=== PATIENT | female | born 1955 | race Hispanic/Latino ===

== ENCOUNTER 2017-08-30 09:41 | Emergency (ER) | payer OTHER ==
[2017-08-30] MEDS ORDERED: NA CHLORIDE 0.9% 500 ML ONE (10:18)
[2017-08-30] MEDS ORDERED: EPINEPHRINE INH 0.5 ML VIAL IH ONE ×3 (10:18→14:48)
[2017-08-30] MEDS ORDERED: DEXAMETHASONE 10 MG/ML VIAL ONE (10:18)
[2017-08-30 10:56] LABS: Absolute Lymphocytes (CBC) 1.1 K/uL (0.7-4.9); Absolute Neutrophil 7.7 K/uL (1.8-8.0); Basophils % 0.2 % (0-1.3); Eosinophils % 0.4 % (0-4.4); Lymphocytes % 11.5 % (15.3-44.8); MCH 27.7 pg (27.0-35.0); MPV 7.4 fL (7.6-11.3); Monocytes % 10.5 % (3.3-12.3); RBC Red Blood Cell Count 4.29 M/uL (3.86-4.86)
--- NOTE | 2017-08-30 11:00 | RAD REPORT ---
EXAM DESCRIPTION: RAD - Chest Pa And Lat (2 Views) - 08/30/2017 10:54 am CLINICAL HISTORY: Cough, wheezing COMPARISON: None. FINDINGS: Ill-defined opacity in the left retrocardiac region and left lung base may represent atele ctasis or developing pneumonia/infiltrate. The heart is mildly prominent size. No displaced fractures .
[2017-08-30] MEDS ORDERED: CEFTRIAXONE/SWI 1gm 1 GM/10 ML SYR ONE (11:19)
[2017-08-30] MEDS ORDERED: AZITHROMYCIN 500 MG/250 ML BAG IV ONE (11:30)
[2017-08-30 12:43] LABS: BUN Blood Urea Nitrogen 16 mg/dL (6-20); Bicarbonate 29 mEq/L (21-31); Glomerular Filtration Rate > 90 mL/min (=/>90); Glucose Level 114 mg/dL (65-120); Potassium 3.6 mEq/L (3.6-5.0); Sodium Level 137 mEq/L (135-145)
--- NOTE | 2017-08-30 13:02 | RAD REPORT ---
EXAM DESCRIPTION: CT - Soft Tissue Neck W/Contr - 08/30/2017 12:35 pm CLINICAL HISTORY: Stridor, shortness of breath TECHNIQUE: During dynamic enhancement using 100 milliliters nonionic IV contrast, axial 5 millimeter thick images of the neck were obtained. All CT scans are performed using dose optimization technique as appropriate and may include automated exposure control or mA/KV adjustment according to patient size. FINDINGS: Prominent mucosal thickening is seen with air-fluid levels in each maxillary sinus. There is prominent ethmoid and right side sphenoid mucosal thickening. Frontal sinuses are not imaged on th is study. No sclerotic or expansile bony change. Mastoid air cells are clear. Limited intracranial assessment is grossly normal. No globe or orbital content abnormality seen. Patient has relatively prominent adenoid tissue for age. No discrete mass or asymmetry seen. No tonsi llar or tongue base abnormality identifiable. Parapharyngeal fat is normal in appearance. No retropha ryngeal abscess, mass or abnormal soft tissue. No thickening or edema of the soft palate. No epiglottic thickening or edema. Laryngeal edema is evident but no asymmetric mass seen. There is s light asymmetry of the soft tissues right posterior supraglottic region. No enhancing or defined mass identifiable. The parotid, submandibular and thyroid gland tissue without definable mass or abnormal enhancement. P atient has a few scattered small bilateral cervical lymph nodes with no suspicious cervical lymphaden opathy. Normal enhancement of the vasculature. No acute vascular finding. No acute bone finding. IMPRESSION: Vocal cords appear mildly edematous but without a discrete vocal cord mass. This is prob ably a viral infectious/ inflammatory process. Posterior right supraglottic soft tissues are minimally asymmetric but no discrete mass identifiable. Likewise, mildly prominent adenoid tissue is without definable mass. Acute and chronic maxillary sinusitis with ethmoid sinusitis.
--- NOTE | 2017-08-30 14:12 | ER ---
Nurse's Notes [facility] Name: Nila Daniel Age: 62 yrs Sex: Female : 1955 Arrival Date: 08/30/2017 Time: 09:42 Bed 6 Private MD: Carmel Burks Diagnosis: Pneumonia;Subglottic swelling;Stridor Presentation: 08/30 10:08 Presenting complaint: Patient states: was seen at Urgent care Tuesday for cough, sore iw throat, was diagnosed with reactive airway, was started on inhaler, cough and sore throat, wheezing got worse, went to see Dr. Burks today and was sent to ER. Transition of care: patient was not received from another setting of care. Onset of symptoms was August 27, 2017. Initial Sepsis Screen: Does the patient meet any 2 criteria? No. Patient's initial sepsis screen is negative. Does the patient have a suspected source of infection? No. Patient initial sepsis screen negative. Care prior to arrival: None. 10:08 Method Of Arrival: Wheelchair iw 10:08 Acuity: PAMELA 3 iw Historical: - Allergies: 10:17 Sulfa (Sulfonamide Antibiotics); iw - Home Meds: 10:17 Methotrexate Sodium Oral [Active]; Folic Acid Oral [Active]; Hydrocortisone Oral iw [Active]; levothyroxine oral [Active]; montelukast oral oral [Active]; Iron CR Oral [Active]; Vitamin D Oral [Active]; - PMHx: 10:17 Hypothyroidism; Rheumatoid Arthritis; iw - Family history:: not pertinent. - Hospitalizations: : No recent hospitalization is reported. Screenin:10 Abuse screen: Denies threats or abuse. Denies injuries from another. Nutritional sv screening: No deficits noted. Tuberculosis screening: No symptoms or risk factors identified. Fall Risk None identified. Assessment: 10:10 General: Appears uncomfortable, slender, well developed, Behavior is calm, cooperative, sv appropriate for age. Pain: Denies pain. Neuro: Level of Consciousness is awake, alert, obeys commands, Oriented to person, place, time, situation, Moves all extremities. Full function Gait is steady, Speech hoarse. Cardiovascular: Heart tones S1 S2 present Patient's skin is warm and dry. Pulses are 3+ in right radial artery and left radial artery Rhythm is regular. Respiratory: Reports shortness of breath at rest cough that is non-productive, pain with cough Airway is patent Respiratory effort is even, unlabored, Respiratory pattern is regular, symmetrical, Breath sounds are coarse bilaterally. Stridor noted. Derm: Skin is normal. Musculoskeletal: Range of motion: intact in all extremities. 11:29 Reassessment: Patient appears in no apparent distress at this time. No changes from sv previously documented assessment. Patient and/or family updated on plan of care and expected duration. Pain level reassessed. Patient is alert, oriented x 3, equal unlabored respirations, skin warm/dry/pink. 12:43 Reassessment: Patient appears in no apparent distress at this time. Patient and/or sv family updated on plan of care and expected duration. Pain level reassessed. Patient is alert, oriented x 3, equal unlabored respirations, skin warm/dry/pink. Patient states symptoms have improved. 13:34 Reassessment: Patient appears in no apparent distress at this time. Patient and/or sv family updated on plan of care and expected duration. Pain level reassessed. Patient is alert, oriented x 3, equal unlabored respirations, skin warm/dry/pink. Patient states symptoms have improved. 15:03 Reassessment: Patient appears in no apparent distress at this time. Patient and/or sv family updated on plan of care and expected duration. Pain level reassessed. Patient is alert, oriented x 3, equal unlabored respirations, skin warm/dry/pink. Report given to Dinorah at [facility]. Patient states symptoms have improved. Vital Signs: 10:15 BP 155 / 82; Pulse 88; Resp 18; Pulse Ox 98% ; sv 11:15 BP 120 / 66; Pulse 87; Resp 18; Pulse Ox 97% on R/A; sv 12:15 BP 127 / 69; Pulse 89; Resp 18; Pulse Ox 98% ; sv 13:33 BP 125 / 73; Pulse 84; Resp 18; Pulse Ox 98% on R/A; sv 14:30 BP 122 / 70; Pulse 88; Resp 18; Pulse Ox 100% ; sv ED Course: :42 Patient arrived in ED. as 09:42 Carmel Burks MD is Private Physician. as 10:02 Jasen Abdul MD is Attending Physician. rn 10:10 Patient has correct armband on for positive identification. Placed in gown. Bed in low sv position. Call light in reach. Side rails up X 1. Adult w/ patient. Pulse ox on. NIBP on. Door closed. Warm blanket given. Head of bed elevated. 10:12 Triage completed. iw 10:14 Xochitl Brian, RN is Primary Nurse. sv 10:15 Initial lab(s) drawn, by me, sent to lab. First set of blood cultures drawn by me. sv 10:17 Arm band placed on. iw 10:20 Inserted saline lock: 20 gauge in left antecubital area, using aseptic technique. Blood sv collected. Flushed left antecubital with 5 ml normal saline. 10:21 Radiology exam delayed due to IV insertion attempt and/or patient not having ml appropriate IV at this time. 10:35 Second set of blood cultures drawn by me. sv 10:52 X-ray completed. Patient tolerated procedure well. Patient moved back from radiology. mh1 10:52 XRAY Chest Pa And Lat (2 Views) In Process Unspecified. EDMS 12:35 CT Soft Tissue Neck W/contr In Process Unspecified. EDMS 15:02 No provider procedures requiring assistance completed. Patient transferred, IV remains sv in place. intact. Administered Medications: 10:15 Drug: Racemic EPINPHrine 0.5 ml Route: Inhalation; sv 10:40 Drug: Decadron - Dexamethasone 10 mg Route: IVP; Site: left antecubital; sv 11:00 Follow up: Response: No adverse reaction sv 10:40 Drug: NS 0.9% 500 ml Route: IV; Rate: bolus; Site: left antecubital; sv 11:15 Follow up: Response: No adverse reaction; IV Status: Completed infusion; IV Intake: sv 500ml 11:29 Drug: Rocephin - (cefTRIAXone) 1 grams Route: IVPB; Infused Over: 30 mins; Site: left iw antecubital; 12:43 Drug: AZITHromycin 500 mg Route: IVPB; Infused Over: 1 hrs; Site: left antecubital; sv 13:58 Follow up: IV Status: Completed infusion; IV Intake: 250ml dm5 14:50 Drug: Racemic EPINPHrine 0.5 ml Route: Inhalation; sv Intake: 11:15 IV: 500ml; Total: 500ml. sv 13:58 IV: 250ml; Total: 750ml. dm5 Outcome: 14:12 ER care complete, transfer ordered by . alley 15:03 Transferred by ground EMS to [facility], Transfer form sv completed. X-rays sent w/ patient. 15:03 Condition: stable 15:03 Instructed on the need for transfer. 16:39 Patient left the ED. sv Signatures: Dispatcher [employer] Cecy Layne RN RN dm5 Xochitl Brian RN RN Naz Reyna Magaly Borja Irene, RN RN iw Lopez, Melissa ml Nieto, Roman, MD MD rn
--- NOTE | 2017-08-30 14:12 | EDPHYS ---
Physician Documentation [facility] Name: Nila Daniel Age: 62 yrs Sex: Female : 1955 Arrival Date: 08/30/2017 Time: 09:42 Bed 6 Private MD: Carmel Burks ED Physician Jasen Abdul HPI: 08/30 10:12 This 62 yrs old Female presents to ER via Unassigned with complaints of rn Wheezing > 1 Year, Cough, Shortness Of Breath. 10:13 The patient has shortness of breath at rest. Onset: The symptoms/episode began/occurred rn 3 day(s) ago. Duration: The symptoms are continuous. The patient's shortness of breath is aggravated by exertion, light activity, talking. Severity of symptoms: At their worst the symptoms were moderate in the emergency department the symptoms are unchanged. The patient has not experienced similar symptoms in the past. Reports sore throat, lost her voice, + mild sob, pain with swallowing water, + productive cough, sent here by dr burks, no known pulmonary issues. No fever. Non-smoker.. Historical: - Allergies: 10:17 Sulfa (Sulfonamide Antibiotics); iw - Home Meds: 10:17 Methotrexate Sodium Oral [Active]; Folic Acid Oral [Active]; Hydrocortisone Oral iw [Active]; levothyroxine oral [Active]; montelukast oral oral [Active]; Iron CR Oral [Active]; Vitamin D Oral [Active]; - PMHx: 10:17 Hypothyroidism; Rheumatoid Arthritis; iw - Family history:: not pertinent. - Hospitalizations: : No recent hospitalization is reported. ROS: 10:13 Constitutional: Negative for fever, chills, and weight loss, Eyes: Negative for injury, rn pain, redness, and discharge, ENT: + sore throat Neck: Negative for injury Cardiovascular: Negative for chest pain, palpitations, and edema, Respiratory: Negative for pleuritic chest pain Abdomen/GI: Negative for abdominal pain, nausea, vomiting, diarrhea, and constipation, Back: Negative for injury and pain, MS/Extremity: Negative for injury and deformity, Skin: Negative for injury, rash, and discoloration, Neuro: Negative for headache, weakness, numbness, tingling, and seizure. Exam: 10:13 Constitutional: This is a well developed, well nourished patient who is awake, alert, rn and in no acute distress. Head/Face: Normocephalic, atraumatic. Eyes: Pupils equal round and reactive to light, extra-ocular motions intact. Lids and lashes normal. Conjunctiva and sclera are non-icteric and not injected. Cornea within normal limits. Periorbital areas with no swelling, redness, or edema. ENT: No intraoral swelling, + mild pharyngeal erythema, + mild stridor but tolerating secretions Neck: + non-tender cervical LAD Cardiovascular: Regular rate and rhythm with a normal S1 and S2. No gallops, murmurs, or rubs. Normal PMI, no JVD. No pulse deficits. Respiratory: + coarse bilateral breath sounds, hard to distinguish upper airway sounds from lower due to prominence of stridor Abdomen/GI: Soft, non-tender, with normal bowel sounds. No distension or tympany. No guarding or rebound. No evidence of tenderness throughout. MS/ Extremity: Pulses equal, no cyanosis. Neurovascular intact. Full, normal range of motion. Equal circumference. Neuro: Awake and alert, GCS 15, oriented to person, place, time, and situation. Cranial nerves II-XII grossly intact. Motor strength 5/5 in all extremities. Sensory grossly intact. Cerebellar exam normal. Normal gait. Vital Signs: 10:15 BP 155 / 82; Pulse 88; Resp 18; Pulse Ox 98% ; sv 11:15 BP 120 / 66; Pulse 87; Resp 18; Pulse Ox 97% on R/A; sv 12:15 BP 127 / 69; Pulse 89; Resp 18; Pulse Ox 98% ; sv 13:33 BP 125 / 73; Pulse 84; Resp 18; Pulse Ox 98% on R/A; sv 14:30 BP 122 / 70; Pulse 88; Resp 18; Pulse Ox 100% ; sv MDM: 10:02 Patient medically screened. rn 13:27 ED course: Spoke with Dr. Fong, who requests transfer due to no ENT here, stridor rn improved with steroids, + LLL pneumonia, will attempt transfer. . 13:54 ED course: Accepted for transfer to [facility] by Dr. Alston, ENT, requests admit to rn hospitalist given LLL pneumonia.. 14:09 Differential diagnosis: pneumonia, stridor, laryngitis, glottis swelling. Data rn reviewed: vital signs, nurses notes, lab test result(s), EKG, radiologic studies, CT scan, plain films, and as a result, I will admit patient. Counseling: I had a detailed discussion with the patient and/or guardian regarding: the historical points, exam findings, and any diagnostic results supporting the discharge/admit diagnosis, lab results, radiology results, the need to transfer to another facility. Response to treatment: the patient's symptoms have mildly improved after treatment, Pt without stridor at rest, improved, safe for transport. 08/30 10:11 Order name: CBC with Diff; Complete Time: 11:13 rn 08/30 10:11 Order name: Basic Metabolic Panel; Complete Time: 13:02 rn 08/30 10:11 Order name: Blood Culture Adult (2) rn 08/30 10:11 Order name: Strep; Complete Time: 11:13 rn 08/30 10:11 Order name: Flu; Complete Time: 11:13 rn 08/30 11:11 Order name: Throat Culture EDMS 08/30 10:11 Order name: XRAY Chest Pa And Lat (2 Views); Complete Time: 11:02 rn 08/30 10:11 Order name: CT Soft Tissue Neck W/contr; Complete Time: 13:03 rn 08/30 10:11 Order name: IV Start; Complete Time: 10:40 rn Administered Medications: 10:15 Drug: Racemic EPINPHrine 0.5 ml Route: Inhalation; sv 10:40 Drug: Decadron - Dexamethasone 10 mg Route: IVP; Site: left antecubital; sv 11:00 Follow up: Response: No adverse reaction sv 10:40 Drug: NS 0.9% 500 ml Route: IV; Rate: bolus; Site: left antecubital; sv 11:15 Follow up: Response: No adverse reaction; IV Status: Completed infusion; IV Intake: sv 500ml 11:29 Drug: Rocephin - (cefTRIAXone) 1 grams Route: IVPB; Infused Over: 30 mins; Site: left iw antecubital; 12:43 Drug: AZITHromycin 500 mg Route: IVPB; Infused Over: 1 hrs; Site: left antecubital; sv 13:58 Follow up: IV Status: Completed infusion; IV Intake: 250ml dm5 14:50 Drug: Racemic EPINPHrine 0.5 ml Route: Inhalation; sv Disposition: 08/30/17 14:12 Transfer ordered to [facility]. Diagnosis are Pneumonia, Subglottic swelling, Stridor. - Reason for transfer: Higher level of care. - Accepting physician is Dr. Ford. - Condition is Stable. - Problem is new. - Symptoms have improved. Signatures: Dispatcher [employer] Xochitl Boss RN RN sv Williams, Irene, RN RN iw Nieto, Roman, MD MD rn Markwardt, Cecy CANALES dm5
== END 2017-08-30 16:39 | disposition short-term general hospital (02) ==
LOC: ER 09:41
DX: J18.9 Pneumonia, unspecified organism (principal); R06.1 Stridor; J38.4 Edema of larynx; E03.9 Hypothyroidism, unspecified; Z88.2 Allergy status to sulfonamides
CPT/HCPCS: 36415; 70491; 71046; 80048; 85025; 87040; 87070; 87081; 87804; 96361; 96365; 96375; 99285; J0456; J0696; J1100; Q9967